=== PATIENT | male | born 1955 ===

== ENCOUNTER 2017-07-14 11:35 | Inpatient (IN) | payer MEDICAID ==
[2017-07-14] MEDS ORDERED: Sodium Chloride 0.9% 1,000 ML IV ONE (13:00)
[2017-07-14] MEDS ORDERED: Sodium Chloride 0.9% 1,000 ML ONE (13:09)
--- NOTE | 2017-07-14 13:21 | RAD ---
HISTORY: pain COMPARISON: No prior. TECHNIQUE: Chest PA and lateral FINDINGS: LUNGS: No infiltrate. Small calcified granulomas in both upper lobes. Largest 7 mm in the right upper lobe. . PLEURA: No significant pleural effusion identified. No pneumothorax apparent. CARDIOVASCULAR: Normal. OSSEOUS STRUCTURES: No significant abnormalities. VISUALIZED UPPER ABDOMEN: Normal. OTHER FINDINGS: None. IMPRESSION: Old granulomatous disease. No acute infiltrate.
[2017-07-14] MEDS ORDERED: Iohexol 240 (50 ml) ONE (13:35)
[2017-07-14 13:38] LABS: BASO # 0.1 K/uL (0.0-0.2); BASO % 0.9 % (0.0-2.0); EOS # 0.1 K/uL (0.0-0.7); EOS % 0.6 % (0.0-4.0); HEMOGLOBIN 11.4 g/dL (12.0-18.0); LYMPH # 0.8 K/uL (1.0-4.3); LYMPH % 8.5 % (20.0-40.0); MEAN CELL VOLUME 83.7 fL (80.0-94.0); MEAN CORPUSCULAR HEMOGLOBIN 27.9 pg (27.0-31.0); MEAN CORPUSCULAR HGB CONC 33.3 g/dL (33.0-37.0); MEAN PLATELET VOLUME 8.1 fL (7.2-11.7); MONO # 0.9 K/uL (0.0-0.8); MONO % 9.3 % (0.0-10.0); NEUT # 7.7 K/uL (1.8-7.0); NEUT % 80.7 % (50.0-75.0); PLATELET COUNT 403 K/uL (130-400); WHITE BLOOD COUNT 9.5 K/uL (4.8-10.8)
[2017-07-14 13:46] LABS: SQUAMOUS EPITHIAL < 1 /hpf (0-5); URINE BILIRUBIN NEGATIVE (NEGATIVE); URINE BLOOD NEGATIVE (NEGATIVE); URINE CLARITY Clear (Clear); URINE COLOR Yellow (YELLOW); URINE GLUCOSE (UA) NORMAL (Normal); URINE LEUKOCYTE ESTERASE NEG Leu/uL (Negative); URINE PROTEIN NEGATIVE (NEGATIVE)
[2017-07-14 13:47] LABS: INR 1.4
[2017-07-14 13:49] LABS: PROTHROMBIN TIME 16.5 SECONDS (9.7-12.2)
[2017-07-14 13:50] LABS: ALB/GLOB RATIO 0.9 (1.0-2.1); ALBUMIN 3.7 g/dL (3.5-5.0); ALT/SGPT 27 U/L (21-72); AST/SGOT 33 U/L (17-59); BLOOD UREA NITROGEN 15 mg/dL (9-20); CALCIUM 9.2 mg/dl (8.6-10.4); GFR AFRICAN-AMERICAN > 60; GFR NON-AFRICAN AMERICAN > 60; LIPASE 138 U/L (23-300)
[2017-07-14 14:21] LABS: ANISOCYTOSIS SLIGHT; LYMPHOCYTE 9 % (20-40); MONOCYTE 7 % (0-10); NEUTROPHIL 84 % (50-75); PLATELET ESTIMATE SLIGHTLY INCREASED (NORMAL); TOTAL CELLS COUNTED 100
--- NOTE | 2017-07-14 14:31 | C.PDOC ---
History Of Present Illness 62 yo male w/o significant PMHx come in for evaluation of "epigastric mass started to hurt for past week". Pt describes pain as localized over epigsatric area, constant but worse at night time, worse with food intake. As per family, "for past few days was unable to swallow because of pain in epigastric area". Pt admits, "noted it some time ago but it did not bother before". Pt also reports, (+) nausea, decrease in appetite, malaise. Otherwise, denies fever, chills, CP, SOB, dyspnea, diaphoresis, palpitation, vomiting, diarrhea, back pain, UTI sx. At the time of evaluation, appear comfortable, not in nay apparent distress. Time Seen by Provider: 07/14/17 12:34 Chief Complaint (Nursing): Abdominal Pain History Per: Patient, Family Onset/Duration Of Symptoms: Gradual, Worse Since Past Medical History Reviewed: Historical Data, Nursing Documentation, Vital Signs Vital Signs: Last Vital Signs Temp 98.4 F 07/14/17 17:01 Pulse 70 07/14/17 17:01 Resp 17 07/14/17 17:01 BP 132/72 07/14/17 17:01 Pulse Ox 99 07/14/17 17:43 - Medical History PMH: No Chronic Diseases Surgical History: Cholecystectomy Family History: States: No Known Family Hx - Social History Hx Tobacco Use: No Hx Alcohol Use: No Hx Substance Use: No - Immunization History Hx Tetanus Toxoid Vaccination: No Hx Influenza Vaccination: No Hx Pneumococcal Vaccination: No Review Of Systems Except As Marked, All Systems Reviewed And Found Negative. Constitutional: Positive for: Malaise. Negative for: Fever, Chills ENT: Negative for: Ear Discharge, Nose Discharge, Throat Pain, Throat Swelling Cardiovascular: Negative for: Chest Pain Respiratory: Negative for: Cough, Shortness of Breath, Wheezing Gastrointestinal: Positive for: Nausea, Abdominal Pain. Negative for: Vomiting , Diarrhea, Melena, Hematochezia, Hematemesis, Rectal Pain Genitourinary: Negative for: Incontinence Musculoskeletal: Negative for: Neck Pain, Back Pain Skin: Negative for: Jaundice Neurological: Negative for: Weakness, Numbness, Altered Mental Status, Dizziness Physical Exam - Physical Exam Appears: Well, Non-toxic, No Acute Distress, Chronically Ill Skin: Normal Color, Warm, Dry, No Rash, No Jaundice Head: Normacephalic Eye(s): bilateral: PERRL Nose: No Flaring, No Discharge Oral Mucosa: Moist Throat: No Drooling Neck: Trachea Midline, Supple Cardiovascular: Rhythm Regular, No Murmur, No JVD Respiratory: No Decreased Breath Sounds, No Accessory Muscle Use, No Stridor, No Wheezing Gastrointestinal/Abdominal: Soft, Tenderness (mod epigastric), No Organomegaly, Mass (epigastric), Distention (mild), No Guarding, No Rebound Back: No CVA Tenderness Extremity: Normal ROM, No Pedal Edema, No Deformity, No Swelling Neurological/Psych: Oriented x3, Normal Speech ED Course And Treatment - Laboratory Results Result Diagrams: 07/14/17 13:26 07/14/17 13:26 Lab Interpretation: No Acute Changes O2 Sat by Pulse Oximetry: 99 Pulse Ox Interpretation: Normal - Other Rad CXR X-Ray: Read By Radiologist Interpretation: FINDINGS: LUNGS: No infiltrate. Small calcified granulomas in both upper lobes. Largest 7 mm in the right upper lobe. . PLEURA: No significant pleural effusion identified. No pneumothorax apparent. CARDIOVASCULAR: Normal. OSSEOUS STRUCTURES: No significant abnormalities. VISUALIZED UPPER ABDOMEN: Normal. OTHER FINDINGS: None. IMPRESSION: Old granulomatous disease. No acute infiltrate. - CT Scan/US CT abd/pelvis Other Rad Studies (CT/US): Interpreted By Me, Radiology Report Reviewed CT/US Interpretation: COMPARISON: None. TECHNIQUE: Contrast dose: 100 mL Visipaque 320. Radiation dose: Total exam DLP = 914.40 mGy-cm. This CT exam was performed using one or more of the following dose reduction techniques: Automated exposure control, adjustment of the mA and/or kV according to patient size, and/or use of iterative reconstruction technique. FINDINGS: LOWER THORAX : Unremarkable. LIVER: Normal size, contour and attenuation. No mass. No biliary dilatation. GALLBLADDER AND BILE DUCTS: Status post cholecystectomy. PANCREAS: Unremarkable. No gross lesion or ductal dilatation. SPLEEN: Unremarkable. ADRENALS: Unremarkable. No mass. KIDNEYS AND URETERS: No mass or hydronephrosis. Several 2 mm nonobstructing calculi are noted in the right lower pole collecting system. No left renal calculus. VASCULATURE: Unremarkable. No aortic aneurysm. BOWEL: Sigmoid diverticulosis. No evidence of diverticulitis. No bowel obstruction. APPENDIX: Normal appendix. PERITONEUM: Minimal ascites in pelvis and about the liver. LYMPH NODES: Massive retroperitoneal lymphadenopathy with extensive mesenteric lymphadenopathy and pelvic lymphadenopathy noted as well. The mass of retroperitoneal lymphoid tissue splays and encases the renal arteries and displaces the celiac and SMA. There is heterogeneous low-attenuation within much of the lymphoid tissue suggestive of central necrosis. BLADDER: Nondistended. REPRODUCTIVE: Unremarkable prostate. BONES: No acute fracture. OTHER FINDINGS: None. IMPRESSION: Massive retroperitoneal lymphadenopathy with pelvic and mesenteric lymphadenopathy, suspicious for a lymphoma. Minimal ascites. No other significant abnormality. . Progress Note: On re-evaluation, pt is afebrile, hemodynamicaly stable. NOn- toxic but ill appearing. Blood work review. CT imaging review c/w new onset of lymphoma. Case discussed with ED attending and admission recommend. case discussed with and admisison arranged, hem-onc consult with Dr. Silva requested, dr notified. results review and discussed with pt and family , agrees with plan. Disposition - Disposition Disposition: HOSPITALIZED Disposition Time: 16:57 Condition: FAIR - Clinical Impression Clinical Impression: Lymphoma, Abdominal pain, Decrease in appetite
[2017-07-14] MEDS ORDERED: Iodixanol 320 MG/ML 100 ML BOTTLE IV ONE (14:56)
--- NOTE | 2017-07-14 16:48 | CT ---
PROCEDURE: CT Abdomen and Pelvis with contrast HISTORY: epigastric abd mass COMPARISON: None. TECHNIQUE: Contrast dose: 100 mL Visipaque 320 Radiation dose: Total exam DLP = 914.40 mGy-cm. This CT exam was performed using one or more of the following dose reduction techniques: Automated exposure control, adjustment of the mA and/or kV according to patient size, and/or use of iterative reconstruction technique. FINDINGS: LOWER THORAX: Unremarkable. LIVER: Normal size, contour and attenuation. No mass. No biliary dilatation. GALLBLADDER AND BILE DUCTS: Status post cholecystectomy. PANCREAS: Unremarkable. No gross lesion or ductal dilatation. SPLEEN: Unremarkable. ADRENALS: Unremarkable. No mass. KIDNEYS AND URETERS: No mass or hydronephrosis. Several 2 mm nonobstructing calculi are noted in the right lower pole collecting system. No left renal calculus. VASCULATURE: Unremarkable. No aortic aneurysm. BOWEL: Sigmoid diverticulosis. No evidence of diverticulitis. No bowel obstruction. APPENDIX: Normal appendix. PERITONEUM: Minimal ascites in pelvis and about the liver LYMPH NODES: Massive retroperitoneal lymphadenopathy with extensive mesenteric lymphadenopathy and pelvic lymphadenopathy noted as well. The mass of retroperitoneal lymphoid tissue splays and encases the renal arteries and displaces the celiac and SMA. There is heterogeneous low-attenuation within much of the lymphoid tissue suggestive of central necrosis. BLADDER: Nondistended REPRODUCTIVE: Unremarkable prostate BONES: No acute fracture. OTHER FINDINGS: None. IMPRESSION: Massive retroperitoneal lymphadenopathy with pelvic and mesenteric lymphadenopathy, suspicious for a lymphoma. Minimal ascites. No other significant abnormality.
[2017-07-14 20:09] VITALS: RESP 20
[2017-07-14] MEDS: Sodium Chloride 0.9% 1,000 ML IV SCH (20:29)
[2017-07-14] MEDS: HYDROmorphone 0.5 mg/0.5 ml ISec IVP PRN (22:10)
[2017-07-15] MEDS: HYDROmorphone 0.5 mg/0.5 ml ISec IVP PRN (04:22)
[2017-07-15 06:49] LABS: HEMOGLOBIN 10.6 g/dL (12.0-18.0); MEAN CORPUSCULAR HEMOGLOBIN 28.9 pg (27.0-31.0); MEAN CORPUSCULAR HGB CONC 34.4 g/dL (33.0-37.0); MEAN PLATELET VOLUME 7.8 fL (7.2-11.7); RBC 3.67 Mil/uL (4.40-5.90); RED CELL DISTRIBUTION WIDTH 15.1 % (11.5-14.5); WHITE BLOOD COUNT 8.5 K/uL (4.8-10.8)
[2017-07-15] MEDS: Sodium Chloride 0.9% 1,000 ML IV SCH ×2 (06:59→16:45)
[2017-07-15 07:01] LABS: IRON 10 ug/dL (49-181)
[2017-07-15 07:13] LABS: ALB/GLOB RATIO 0.9 (1.0-2.1); ALT/SGPT 23 U/L (21-72); AST/SGOT 28 U/L (17-59); BLOOD UREA NITROGEN 9 mg/dL (9-20); CALCIUM 8.3 mg/dl (8.6-10.4); GFR AFRICAN-AMERICAN > 60; GFR NON-AFRICAN AMERICAN > 60
[2017-07-15 07:17] LABS: % IRON SATURATION 5 (20-55); TOTAL IRON BINDING CAPACITY 226 ug/dL (250-450)
--- NOTE | 2017-07-15 10:13 | CP.PCM.CON ---
<Kate Garcia - Last Filed: 07/15/17 10:15> History of Present Illness - History of Present Illness History of Present Illness: PGY4 GI Initial Consult Gonsalo Kenney is a 62 M w/ no sig medical hx who presented the ER with complaints if abd pain. Pt states that the pain started 1-2m ago and has progressively worsened. Pt states that the pain was a 9 out of 10. His pain radiates to his back. He denies any trouble swallowing. He notes association with food. He notes a 20lb weight loss in 2-3 months. he denies and rectal bleeding, melena, hematemesis, or coffee-ground emesis. He denies any previous colonoscopy and endoescopy. . Pt also reports, (+) nausea, decrease in appetite , malaise. Otherwise, denies fever, chills, CP, SOB, dyspnea, diaphoresis, palpitation, vomiting, diarrhea, back pain. A CT of the abd/chest revealed diffusely enlarged lymph nodes in the abd. PMHx None PSHx: None Social hx, denies any smoking, ETOH use and illicit drug use Fmaily hx : denies Endo hx: denies ROS: 12 point ROS conducted, neg other than above Past Patient History - Past Medical History & Family History Past Medical History?: Yes - Past Social History Smoking Status: Never Smoked - CARDIAC Hx Cardiac Disorders: No - PULMONARY Hx Respiratory Disorders: No - NEUROLOGICAL Hx Neurological Disorder: No - HEENT Hx HEENT Problems: No - RENAL Hx Chronic Kidney Disease: No - ENDOCRINE/METABOLIC Hx Endocrine Disorders: No - HEMATOLOGICAL/ONCOLOGICAL Hx Blood Disorders: No - INTEGUMENTARY Hx Dermatological Problems: No - MUSCULOSKELETAL/RHEUMATOLOGICAL Hx Musculoskeletal Disorders: No Hx Falls: No - GASTROINTESTINAL Hx Gastrointestinal Disorders: No Hx Gall Bladder Disease: Yes - GENITOURINARY/GYNECOLOGICAL Hx Genitourinary Disorders: No Hx Sexually Transmitted Disorders: Yes (Gonorrhea 40 yrs ago) - PSYCHIATRIC Hx Psychophysiologic Disorder: No Hx Substance Use: No - SURGICAL HISTORY Hx Cholecystectomy: Yes (2015) - ANESTHESIA Hx Anesthesia: Yes Hx Anesthesia Reactions: No Meds Allergies/Adverse Reactions: Allergies Allergy/AdvReac Type Severity Reaction Status Date / Time No Known Allergies Allergy Unverified 07/14/17 11:48 - Medications Medications: Current Medications Enoxaparin Sodium (Lovenox) 40 mg SC DAILY [facility] Famotidine (Pepcid) 40 mg IVP DAILY [facility] Hydromorphone HCl (Dilaudid) 0.5 mg IVP Q6H PRN PRN Reason: Pain, moderate (4-7) Last Admin: 07/15/17 04:22 Dose: 0.5 mg Sodium Chloride (Sodium Chloride 0.9%) 1,000 mls @ 100 mls/hr IV .Q10H [facility] Last Admin: 07/15/17 06:59 Dose: 100 mls/hr Ondansetron HCl (Zofran Inj) 4 mg IVP Q6H PRN PRN Reason: Nausea/Vomiting Pneumococcal Polyvalent Vaccine (Pneumovax 23 Vaccine) 0.5 ml IM .ONCE ONE Stop: 07/17/17 10:01 Physical Exam - Constitutional Appears: Well, No Acute Distress - Head Exam Head Exam: ATRAUMATIC, NORMOCEPHALIC - Eye Exam Eye Exam: Normal appearance - ENT Exam ENT Exam: Mucous Membranes Moist, Normal Exam - Neck Exam Neck exam: Positive for: Normal Inspection - Respiratory Exam Respiratory Exam: Clear to Auscultation Bilateral, NORMAL BREATHING PATTERN. absent: Rales, Rhonchi, Wheezes, Respiratory Distress - Cardiovascular Exam Cardiovascular Exam: +S1, +S2 - GI/Abdominal Exam GI & Abdominal Exam: Firm, Normal Bowel Sounds, Soft. absent: Distended, Guarding, Hernia - Extremities Exam Extremities exam: Negative for: joint swelling - Neurological Exam Neurological exam: Alert, Oriented x3 - Psychiatric Exam Psychiatric exam: Normal Affect, Normal Mood - Skin Skin Exam: Dry, Intact, Normal Color, Warm Results - Vital Signs Recent Vital Signs: Last Vital Signs Temp 98.2 F 07/15/17 07:37 Pulse 72 07/15/17 07:37 Resp 20 07/15/17 07:37 BP 128/76 07/15/17 07:37 Pulse Ox 98 07/15/17 07:37 - Labs Result Diagrams: 07/15/17 06:37 07/15/17 06:37 Labs: Laboratory Results - last 24 hr 07/14/17 07/14/17 07/14/17 13:26 13:26 13:26 WBC 9.5 RBC 4.10 L Hgb 11.4 L Hct 34.3 L MCV 83.7 MCH 27.9 MCHC 33.3 RDW 15.0 H Plt Count 403 H MPV 8.1 Neut % (Auto) 80.7 H Lymph % (Auto) 8.5 L Page % (Auto) 9.3 Eos % (Auto) 0.6 Baso % (Auto) 0.9 Neut # (Auto) 7.7 H Lymph # (Auto) 0.8 L Page # (Auto) 0.9 H Eos # (Auto) 0.1 Baso # (Auto) 0.1 Neutrophils % (Manual) 84 H Lymphocytes % (Manual) 9 L Monocytes % (Manual) 7 Platelet Estimate Slightly increased H Anisocytosis (manual) Slight PT 16.5 H INR 1.4 APTT 28 Sodium 136 Potassium 4.4 Chloride 95 L Carbon Dioxide 28 Anion Gap 17 BUN 15 Creatinine 0.7 L Est GFR ( Amer) > 60 Est GFR (Non-Af Amer) > 60 Random Glucose 85 Hemoglobin A1c Calcium 9.2 Iron TIBC % Saturation Total Bilirubin 0.8 AST 33 ALT 27 Alkaline Phosphatase 101 Total Protein 7.7 Albumin 3.7 Globulin 4.0 H Albumin/Globulin Ratio 0.9 L Triglycerides Cholesterol LDL Cholesterol Direct HDL Cholesterol Lipase 138 Vitamin B12 Folate TSH 3rd Generation Urine Color Urine Clarity Urine pH Ur Specific Stendal Urine Protein Urine Glucose (UA) Urine Ketones Urine Blood Urine Nitrate Urine Bilirubin Urine Urobilinogen Ur Leukocyte Esterase Urine WBC (Auto) Urine RBC (Auto) Ur Squamous Epith Cells 07/14/17 07/15/17 07/15/17 13:26 06:37 06:37 WBC RBC Hgb Hct MCV MCH MCHC RDW Plt Count MPV Neut % (Auto) Lymph % (Auto) Page % (Auto) Eos % (Auto) Baso % (Auto) Neut # (Auto) Lymph # (Auto) Page # (Auto) Eos # (Auto) Baso # (Auto) Neutrophils % (Manual) Lymphocytes % (Manual) Monocytes % (Manual) Platelet Estimate Anisocytosis (manual) PT INR APTT Sodium Potassium Chloride Carbon Dioxide Anion Gap BUN Creatinine Est GFR ( Amer) Est GFR (Non-Af Amer) Random Glucose Hemoglobin A1c Calcium Iron 10 L TIBC 226 L % Saturation 5 L Total Bilirubin AST ALT Alkaline Phosphatase Total Protein Albumin Globulin Albumin/Globulin Ratio Triglycerides 86 Cholesterol 140 LDL Cholesterol Direct 99 HDL Cholesterol 22 L Lipase Vitamin B12 496 Folate 5.0 TSH 3rd Generation Urine Color Yellow Urine Clarity Clear Urine pH 6.0 Ur Specific Stendal 1.021 Urine Protein Negative Urine Glucose (UA) Normal Urine Ketones Negative Urine Blood Negative Urine Nitrate Negative Urine Bilirubin Negative Urine Urobilinogen 4.0 Ur Leukocyte Esterase Neg Urine WBC (Auto) < 1 Urine RBC (Auto) 1 Ur Squamous Epith Cells < 1 07/15/17 07/15/17 07/15/17 06:37 06:37 06:37 WBC 8.5 RBC 3.67 L Hgb 10.6 L Hct 30.8 L MCV 84.0 MCH 28.9 MCHC 34.4 RDW 15.1 H Plt Count 349 MPV 7.8 Neut % (Auto) Lymph % (Auto) Page % (Auto) Eos % (Auto) Baso % (Auto) Neut # (Auto) Lymph # (Auto) Page # (Auto) Eos # (Auto) Baso # (Auto) Neutrophils % (Manual) Lymphocytes % (Manual) Monocytes % (Manual) Platelet Estimate Anisocytosis (manual) PT INR APTT Sodium 136 Potassium 3.9 Chloride 98 Carbon Dioxide 26 Anion Gap 15 BUN 9 Creatinine 0.6 L Est GFR ( Amer) > 60 Est GFR (Non-Af Amer) > 60 Random Glucose 91 Hemoglobin A1c 6.0 Calcium 8.3 L Iron TIBC % Saturation Total Bilirubin 0.6 AST 28 ALT 23 Alkaline Phosphatase 85 Total Protein 6.4 Albumin 3.0 L Globulin 3.4 Albumin/Globulin Ratio 0.9 L Triglycerides Cholesterol LDL Cholesterol Direct HDL Cholesterol Lipase Vitamin B12 Folate TSH 3rd Generation 4.43 Urine Color Urine Clarity Urine pH Ur Specific Stendal Urine Protein Urine Glucose (UA) Urine Ketones Urine Blood Urine Nitrate Urine Bilirubin Urine Urobilinogen Ur Leukocyte Esterase Urine WBC (Auto) Urine RBC (Auto) Ur Squamous Epith Cells Assessment & Plan - Assessment and Plan (Free Text) Assessment: Gonsalo Kenney is a 62M w/ no sig abd pain who presents to the ER w/ complaints of abd pain. CT revealed enlarged lymph nodes disfusely in the abdomen Massively enlarged Lymph Nodes; DDx: lymphoma Epigastric pain, likely 2/2 above; DDx: PUD, malignancy Weight loss Plan: - would benefit from EUS guided biospy of nodes -continue PPI -recommend Hem/onc consultation -continue diet as tolerated -will eventually need a colonoscopy as an oupt to complete work-up -will need PET ad outpt to complete staging w/u -will follow, thank you for the consultation D/W Dr. herrera <Chan Herrera - Last Filed: 07/15/17 11:20> Meds - Medications Medications: Current Medications Enoxaparin Sodium (Lovenox) 40 mg SC DAILY [facility] Last Admin: 07/15/17 10:22 Dose: 40 mg Famotidine (Pepcid) 40 mg IVP DAILY [facility] Last Admin: 07/15/17 10:22 Dose: 40 mg Hydromorphone HCl (Dilaudid) 0.5 mg IVP Q6H PRN PRN Reason: Pain, moderate (4-7) Last Admin: 07/15/17 04:22 Dose: 0.5 mg Sodium Chloride (Sodium Chloride 0.9%) 1,000 mls @ 100 mls/hr IV .Q10H [facility] Last Admin: 07/15/17 06:59 Dose: 100 mls/hr Ondansetron HCl (Zofran Inj) 4 mg IVP Q6H PRN PRN Reason: Nausea/Vomiting Pneumococcal Polyvalent Vaccine (Pneumovax 23 Vaccine) 0.5 ml IM .ONCE ONE Stop: 07/17/17 10:01 Results - Vital Signs Recent Vital Signs: Last Vital Signs Temp 98.2 F 07/15/17 07:37 Pulse 72 07/15/17 07:37 Resp 20 07/15/17 07:37 BP 128/76 07/15/17 07:37 Pulse Ox 98 07/15/17 07:37 - Labs Result Diagrams: 07/15/17 06:37 07/15/17 06:37 Labs: Laboratory Results - last 24 hr 07/14/17 07/14/17 07/14/17 13:26 13:26 13:26 WBC 9.5 RBC 4.10 L Hgb 11.4 L Hct 34.3 L MCV 83.7 MCH 27.9 MCHC 33.3 RDW 15.0 H Plt Count 403 H MPV 8.1 Neut % (Auto) 80.7 H Lymph % (Auto) 8.5 L Page % (Auto) 9.3 Eos % (Auto) 0.6 Baso % (Auto) 0.9 Neut # (Auto) 7.7 H Lymph # (Auto) 0.8 L Page # (Auto) 0.9 H Eos # (Auto) 0.1 Baso # (Auto) 0.1 Neutrophils % (Manual) 84 H Lymphocytes % (Manual) 9 L Monocytes % (Manual) 7 Platelet Estimate Slightly increased H Anisocytosis (manual) Slight PT 16.5 H INR 1.4 APTT 28 Sodium 136 Potassium 4.4 Chloride 95 L Carbon Dioxide 28 Anion Gap 17 BUN 15 Creatinine 0.7 L Est GFR ( Amer) > 60 Est GFR (Non-Af Amer) > 60 Random Glucose 85 Hemoglobin A1c Calcium 9.2 Iron TIBC % Saturation Total Bilirubin 0.8 AST 33 ALT 27 Alkaline Phosphatase 101 Total Protein 7.7 Albumin 3.7 Globulin 4.0 H Albumin/Globulin Ratio 0.9 L Triglycerides Cholesterol LDL Cholesterol Direct HDL Cholesterol Lipase 138 Vitamin B12 Folate TSH 3rd Generation Urine Color Urine Clarity Urine pH Ur Specific Stendal Urine Protein Urine Glucose (UA) Urine Ketones Urine Blood Urine Nitrate Urine Bilirubin Urine Urobilinogen Ur Leukocyte Esterase Urine WBC (Auto) Urine RBC (Auto) Ur Squamous Epith Cells 07/14/17 07/15/17 07/15/17 13:26 06:37 06:37 WBC RBC Hgb Hct MCV MCH MCHC RDW Plt Count MPV Neut % (Auto) Lymph % (Auto) Page % (Auto) Eos % (Auto) Baso % (Auto) Neut # (Auto) Lymph # (Auto) Page # (Auto) Eos # (Auto) Baso # (Auto) Neutrophils % (Manual) Lymphocytes % (Manual) Monocytes % (Manual) Platelet Estimate Anisocytosis (manual) PT INR APTT Sodium Potassium Chloride Carbon Dioxide Anion Gap BUN Creatinine Est GFR ( Amer) Est GFR (Non-Af Amer) Random Glucose Hemoglobin A1c Calcium Iron 10 L TIBC 226 L % Saturation 5 L Total Bilirubin AST ALT Alkaline Phosphatase Total Protein Albumin Globulin Albumin/Globulin Ratio Triglycerides 86 Cholesterol 140 LDL Cholesterol Direct 99 HDL Cholesterol 22 L Lipase Vitamin B12 496 Folate 5.0 TSH 3rd Generation Urine Color Yellow Urine Clarity Clear Urine pH 6.0 Ur Specific Stendal 1.021 Urine Protein Negative Urine Glucose (UA) Normal Urine Ketones Negative Urine Blood Negative Urine Nitrate Negative Urine Bilirubin Negative Urine Urobilinogen 4.0 Ur Leukocyte Esterase Neg Urine WBC (Auto) < 1 Urine RBC (Auto) 1 Ur Squamous Epith Cells < 1 07/15/17 07/15/17 07/15/17 06:37 06:37 06:37 WBC 8.5 RBC 3.67 L Hgb 10.6 L Hct 30.8 L MCV 84.0 MCH 28.9 MCHC 34.4 RDW 15.1 H Plt Count 349 MPV 7.8 Neut % (Auto) Lymph % (Auto) Page % (Auto) Eos % (Auto) Baso % (Auto) Neut # (Auto) Lymph # (Auto) Page # (Auto) Eos # (Auto) Baso # (Auto) Neutrophils % (Manual) Lymphocytes % (Manual) Monocytes % (Manual) Platelet Estimate Anisocytosis (manual) PT INR APTT Sodium 136 Potassium 3.9 Chloride 98 Carbon Dioxide 26 Anion Gap 15 BUN 9 Creatinine 0.6 L Est GFR ( Amer) > 60 Est GFR (Non-Af Amer) > 60 Random Glucose 91 Hemoglobin A1c 6.0 Calcium 8.3 L Iron TIBC % Saturation Total Bilirubin 0.6 AST 28 ALT 23 Alkaline Phosphatase 85 Total Protein 6.4 Albumin 3.0 L Globulin 3.4 Albumin/Globulin Ratio 0.9 L Triglycerides Cholesterol LDL Cholesterol Direct HDL Cholesterol Lipase Vitamin B12 Folate TSH 3rd Generation 4.43 Urine Color Urine Clarity Urine pH Ur Specific Stendal Urine Protein Urine Glucose (UA) Urine Ketones Urine Blood Urine Nitrate Urine Bilirubin Urine Urobilinogen Ur Leukocyte Esterase Urine WBC (Auto) Urine RBC (Auto) Ur Squamous Epith Cells Attending/Attestation - Attestation I have personally seen and examined this patient.: Yes I have fully participated in the care of the patient.: Yes I have reviewed all pertinent clinical information: Yes Notes (Text): 07/15/17 11:19 62 year old male who presents with new onset abdominal pain and weight loss, found to have bulky retroperitoneal lymphadenopathy. Plan for EUS with [facility] monday. Recommend Heme consult.
[2017-07-15] MEDS: Enoxaparin 40 mg Syringe SC SCH (10:22)
--- NOTE | 2017-07-15 11:25 | HP ---
CHIEF COMPLAINT: Feeling fatigue, tired, and abdominal pain. HISTORY OF PRESENT ILLNESS: Mr. Anne Marie Brush is a 62-year-old male, without significant past medical history, came for evaluation of epigastric mass that started to hurt for the past week. The patient described pain as localized over the epigastric area. at night time versus food intake. As per family for the past few days, the patient was unable to swallow because of pain in the epigastrium area. The patient noted it some time ago, but it did not bother before, it comes and goes. The patient reports also positive nausea, decrease in appetite, malaise. No fever or chills. No shortness of breath. No dyspnea, no diaphoresis, no palpitation, hematuria, or hematochezia. PAST MEDICAL HISTORY: Denied. PAST SURGICAL HISTORY: Cholecystectomy. FAMILY HISTORY: Father and mother, noncontributory. HABITS: Never smoked. No drugs. No ethanol. HOME MEDICATIONS: Denied. REVIEW OF SYSTEMS: The patient seen and examined at the bedside. Looking comfortable. No nausea, vomiting, diarrhea. No hematuria or hematochezia. No headache. No dizziness. Was complaining about abdominal pain. Poor appetite. Feeling fatigue and tired, some time nauseous. PHYSICAL EXAMINATION: VITAL SIGNS: Temperature 98.4, pulse 100, respiratory rate 17, blood pressure 132/72, pulse oximetry 99. HEENT: Head: Normocephalic, atraumatic. Eyes: PERRLA. Extraocular muscles intact. Conjunctivae clear. Nose patent. Mucous membrane moist. NECK: Supple. No carotid bruits, JVD, or thyromegaly. CHEST: Bilaterally symmetrical. HEART: S1 and S2 positive. LUNGS: Clear to auscultation. ABDOMEN: Soft. Bowel sounds positive. No organomegaly. EXTREMITIES: No edema, no cyanosis. NEUROLOGICAL: The patient is awake and alert, moving all four extremities. No focal deficits. LABORATORY DATA: White blood cells 9.5, hemoglobin 11.4, hematocrit 34.3, and platelets of 403. Sodium 136, potassium 4.4, BUN 15, creatinine 0.7, glucose 85. ASSESSMENT AND PLAN: Mr. Gonsalo Castillo is a 62-year-old male, with anemia, hyperglycemia, hypochloremia, came with abdominal pain. The patient looks ill appearing. CT images reviewed showed like new onset lymphoma. Discussion with ER physician. Hematology consult with Dr. Epstein and GI with Dr. Moise Nolasco. The patient had anorexia, nausea, abdominal pain, rule out lymphoma. We will start him on pain medications, hydromorphone, Pepcid, NS, Zofran . I will put the patient on Lovenox for DVT prophylaxis. We will repeat labs. We will follow up. Kenzie Zepeda MD [email or web address]
[2017-07-15] MEDS ORDERED: HYDROmorphone 1 mg/ml ISec IVP PRN (20:22)
--- NOTE | 2017-07-15 20:43 | CP.PCM.CON ---
History of Present Illness - History of Present Illness History of Present Illness: 62 yo man presenting with increasing abdominal pain, without nausea, vomiting, diarrhea, decreased appetite and weight loss of 20 lbs, no fevers, night sweats , for a little over a week, found to have bulky retroperitoneal lymphadenopathy , scheduled for EUS biopsy. The patient does not have any axillary or neck L.N, except for a rt. neck L.N. The patient is also c/o sore throat also since a week or so. Past Patient History - Past Medical History & Family History Past Medical History?: Yes - Past Social History Smoking Status: Never Smoked - CARDIAC Hx Cardiac Disorders: No - PULMONARY Hx Respiratory Disorders: No - NEUROLOGICAL Hx Neurological Disorder: No - HEENT Hx HEENT Problems: No - RENAL Hx Chronic Kidney Disease: No - ENDOCRINE/METABOLIC Hx Endocrine Disorders: No - HEMATOLOGICAL/ONCOLOGICAL Hx Blood Disorders: No - INTEGUMENTARY Hx Dermatological Problems: No - MUSCULOSKELETAL/RHEUMATOLOGICAL Hx Musculoskeletal Disorders: No Hx Falls: No - GASTROINTESTINAL Hx Gastrointestinal Disorders: No Hx Gall Bladder Disease: Yes - GENITOURINARY/GYNECOLOGICAL Hx Genitourinary Disorders: No Hx Sexually Transmitted Disorders: Yes (Gonorrhea 40 yrs ago) - PSYCHIATRIC Hx Psychophysiologic Disorder: No Hx Substance Use: No - SURGICAL HISTORY Hx Cholecystectomy: Yes (2015) - ANESTHESIA Hx Anesthesia: Yes Hx Anesthesia Reactions: No Meds Allergies/Adverse Reactions: Allergies Allergy/AdvReac Type Severity Reaction Status Date / Time No Known Allergies Allergy Unverified 07/14/17 11:48 - Medications Medications: Current Medications Enoxaparin Sodium (Lovenox) 40 mg SC DAILY [facility] Last Admin: 07/15/17 10:22 Dose: 40 mg Famotidine (Pepcid) 40 mg IVP DAILY [facility] Last Admin: 07/15/17 10:22 Dose: 40 mg Hydromorphone HCl (Dilaudid) 1 mg IVP Q4H PRN PRN Reason: Pain, Mild (1-3) Sodium Chloride (Sodium Chloride 0.9%) 1,000 mls @ 100 mls/hr IV .Q10H [facility] Last Admin: 07/15/17 16:45 Dose: Not Given Ondansetron HCl (Zofran Inj) 4 mg IVP Q6H PRN PRN Reason: Nausea/Vomiting Pneumococcal Polyvalent Vaccine (Pneumovax 23 Vaccine) 0.5 ml IM .ONCE ONE Stop: 07/17/17 10:01 Results - Vital Signs Recent Vital Signs: Last Vital Signs Temp 98.5 F 07/15/17 17:11 Pulse 76 07/15/17 17:11 Resp 20 07/15/17 17:11 BP 130/74 07/15/17 17:11 Pulse Ox 95 07/15/17 17:11 - Labs Result Diagrams: 07/15/17 06:37 07/15/17 06:37 Labs: Laboratory Results - last 24 hr 07/15/17 07/15/17 07/15/17 06:37 06:37 06:37 WBC RBC Hgb Hct MCV MCH MCHC RDW Plt Count MPV Sodium Potassium Chloride Carbon Dioxide Anion Gap BUN Creatinine Est GFR ( Amer) Est GFR (Non-Af Amer) Random Glucose Hemoglobin A1c 6.0 Calcium Iron 10 L TIBC 226 L % Saturation 5 L Total Bilirubin AST ALT Alkaline Phosphatase Total Protein Albumin Globulin Albumin/Globulin Ratio Triglycerides 86 Cholesterol 140 LDL Cholesterol Direct 99 HDL Cholesterol 22 L Vitamin B12 496 Folate 5.0 TSH 3rd Generation 07/15/17 07/15/17 06:37 06:37 WBC 8.5 RBC 3.67 L Hgb 10.6 L Hct 30.8 L MCV 84.0 MCH 28.9 MCHC 34.4 RDW 15.1 H Plt Count 349 MPV 7.8 Sodium 136 Potassium 3.9 Chloride 98 Carbon Dioxide 26 Anion Gap 15 BUN 9 Creatinine 0.6 L Est GFR ( Amer) > 60 Est GFR (Non-Af Amer) > 60 Random Glucose 91 Hemoglobin A1c Calcium 8.3 L Iron TIBC % Saturation Total Bilirubin 0.6 AST 28 ALT 23 Alkaline Phosphatase 85 Total Protein 6.4 Albumin 3.0 L Globulin 3.4 Albumin/Globulin Ratio 0.9 L Triglycerides Cholesterol LDL Cholesterol Direct HDL Cholesterol Vitamin B12 Folate TSH 3rd Generation 4.43 Assessment & Plan (1) Lymphadenopathy Assessment and Plan: 62 yo man with bulky retroperitoneal lymphadenopathy presenting with abdominal pain, weight loss, also with rt. neck L.N and rt. tonsil mass, ?? all secondary to lymphoid malignancy. Will need core biopsy of L.N to establish diagnosis, will get ENT eval for ? fna of rt. neck LN , to r/o tonsillar abscess/? malignancy. Will get CAT scan of neck and chest as [place] . Above discussed with patient. Will get labs-LDH, Hepatitis profiles, EBV, ESR Status: Acute
--- NOTE | 2017-07-16 00:05 | PN ---
DATE: SUBJECTIVE: The patient is seen and examined at the bedside, looking comfortable. No nausea, vomiting, diarrhea. Having abdominal pain. No headache. No dizziness. No fever. No chills. No hematuria. No dysuria. PHYSICAL EXAMINATION: VITAL SIGNS: Temperature 98.5, pulse 73, blood pressure 130/74, respiratory rate 20. HEENT: Head is normocephalic and atraumatic. Eyes: PERRLA. Extraocular muscles intact. Conjunctivae clear. Nose patent. Mucous membranes moist. NECK: Supple. No carotid bruit. No JVD or thyromegaly. CHEST: Bilaterally symmetrical. HEART: S1 and S2 positive LUNGS: Clear to auscultation. ABDOMEN: Soft. Bowel sounds are present. No organomegaly. EXTREMITIES: No edema. No cyanosis. NEUROLOGIC: Patient is awake and alert. Moving all four extremities. No focal deficit. MEDICATIONS: Dilaudid, Lovenox, Pepcid, Pneumococcal ,Zofran. LABORATORY DATA: White blood cells 8.5, hemoglobin 10.6, hematocrit 30.8, platelets 349. Sodium 136, potassium 3.9, BUN 9, creatinine 0.6, hemoglobin A1c is 6, calcium 8.3. ASSESSMENT AND PLAN: Mr. Clover Brush is 62 years old male with anemia, hyperchloremia, iron deficiency, seen by Dr. Chan Herrera, agricultural service worker, came to the emergency room with abdominal pain. CT revealed enlarged lymph nodes, diffusely in the abdomen. Massively large lymph nodes, may rule out lymphoma. Epigastric pain, likely may be peptic ulcer diffuse malignancy of weight lost. Would benefit from an EUS-guided biopsy of the nodes. Continue PPI. Recommend Hematology/Oncology consult. They are already on the case, waiting for the input. Continue diet as tolerated. The patient needs colonoscopy as outpatient to complete the workup. We will need PET scan as outpatient. May be patient will go for EUS with [facility] on Monday as per Dr. Herrera, waiting for oncologist's input. Gastrointestinal and deep venous thrombosis prophylaxis. Repeat labs. We will follow up. Kenzie Zepeda MD [facility]
[2017-07-16] MEDS: Sodium Chloride 0.9% 1,000 ML IV SCH ×5 (02:00→22:48)
[2017-07-16] MEDS ORDERED: Iodixanol 320 mg/ml 150 ml Bottle IV ONE (08:02)
[2017-07-16] MEDS: Enoxaparin 40 mg Syringe SC SCH (10:09)
--- NOTE | 2017-07-16 12:01 | CP.PCM.PN ---
<Kate Garcia - Last Filed: 07/16/17 12:02> Subjective - Date & Time of Evaluation Date of Evaluation: 07/16/17 Time of Evaluation: 08:00 - Subjective Subjective: PGY4 GI follow-up Pt seen and examined bedside Denies any abd pain hungry +BM ROS:12 point ROS conducted, neg other than above Objective - Vital Signs/Intake and Output Vital Signs (last 24 hours): Temp Pulse Resp BP Pulse Ox 98.1 F 65 20 121/71 97 07/15/17 23:42 07/15/17 23:42 07/15/17 23:42 07/15/17 23:42 07/15/17 23:42 Intake and Output: 07/16/17 07/16/17 06:59 18:59 Intake Total 2130 Balance 2130 - Medications Medications: Current Medications Enoxaparin Sodium (Lovenox) 40 mg SC DAILY [facility] Last Admin: 07/16/17 10:09 Dose: 40 mg Famotidine (Pepcid) 40 mg IVP DAILY [facility] Last Admin: 07/16/17 10:09 Dose: 40 mg Hydromorphone HCl (Dilaudid) 1 mg IVP Q4H PRN PRN Reason: Pain, Mild (1-3) Sodium Chloride (Sodium Chloride 0.9%) 1,000 mls @ 100 mls/hr IV .Q10H [facility] Last Admin: 07/16/17 11:34 Dose: Not Given Ondansetron HCl (Zofran Inj) 4 mg IVP Q6H PRN PRN Reason: Nausea/Vomiting Pneumococcal Polyvalent Vaccine (Pneumovax 23 Vaccine) 0.5 ml IM .ONCE ONE Stop: 07/17/17 10:01 - Labs Labs: 07/15/17 06:37 07/15/17 06:37 PT 16.5 SECONDS (9.7-12.2) H 07/14/17 13:26 INR 1.4 07/14/17 13:26 APTT 28 SECONDS (21-34) 07/14/17 13:26 - Constitutional Appears: Well, No Acute Distress - Head Exam Head Exam: ATRAUMATIC, NORMOCEPHALIC - Eye Exam Eye Exam: Normal appearance - Neck Exam Neck Exam: Full ROM, Normal Inspection - Respiratory Exam Respiratory Exam: Clear to Ausculation Bilateral, NORMAL BREATHING PATTERN. absent: Rales, Rhonchi, Wheezes, Respiratory Distress - Cardiovascular Exam Cardiovascular Exam: REGULAR RHYTHM, +S1, +S2 - GI/Abdominal Exam GI & Abdominal Exam: Soft, Normal Bowel Sounds. absent: Guarding, Rigid, Tenderness, Organomegaly - Extremities Exam Extremities Exam: absent: Joint Swelling, Pedal Edema - Neurological Exam Neurological Exam: Alert, Awake, Oriented x3 - Psychiatric Exam Psychiatric exam: Normal Affect, Normal Mood - Skin Skin Exam: absent: Dry, Intact, Normal Color, Warm Assessment and Plan - Assessment and Plan (Free Text) Assessment: matthew Kenney is a 62M w/ no sig abd pain who presents to the ER w/ complaints of abd pain. CT revealed enlarged lymph nodes disfusely in the abdomen Massively enlarged Lymph Nodes; DDx: lymphoma Epigastric pain, likely 2/2 above; DDx: PUD, malignancy Weight loss Plan: - EUS/EGD guided biospy of nodes tomorrow -NPO after midnight -continue PPI -continue diet as tolerated -will eventually need a colonoscopy as an oupt to complete work-up -will need PET ad outpt to complete staging w/u -will follow, thank you for the consultation D/W Dr. Herrera <Chan Herrera - Last Filed: 07/16/17 16:23> Objective - Vital Signs/Intake and Output Vital Signs (last 24 hours): Temp Pulse Resp BP Pulse Ox 98.2 F 82 20 132/74 99 07/16/17 15:16 07/16/17 15:16 07/16/17 15:16 07/16/17 15:16 07/16/17 15:16 Intake and Output: 07/16/17 07/16/17 06:59 18:59 Intake Total 2130 1300 Balance 2130 1300 - Medications Medications: Current Medications Enoxaparin Sodium (Lovenox) 40 mg SC DAILY [facility] Last Admin: 07/16/17 10:09 Dose: 40 mg Famotidine (Pepcid) 40 mg IVP DAILY [facility] Last Admin: 07/16/17 10:09 Dose: 40 mg Hydromorphone HCl (Dilaudid) 1 mg IVP Q4H PRN PRN Reason: Pain, Mild (1-3) Sodium Chloride (Sodium Chloride 0.9%) 1,000 mls @ 100 mls/hr IV .Q10H [facility] Last Admin: 07/16/17 11:34 Dose: Not Given Ondansetron HCl (Zofran Inj) 4 mg IVP Q6H PRN PRN Reason: Nausea/Vomiting Pneumococcal Polyvalent Vaccine (Pneumovax 23 Vaccine) 0.5 ml IM .ONCE ONE Stop: 07/17/17 10:01 - Labs Labs: 07/15/17 06:37 07/15/17 06:37 PT 16.5 SECONDS (9.7-12.2) H 07/14/17 13:26 INR 1.4 07/14/17 13:26 APTT 28 SECONDS (21-34) 07/14/17 13:26 Attending/Attestation - Attestation I have personally seen and examined this patient.: Yes I have fully participated in the care of the patient.: Yes I have reviewed all pertinent clinical information, including history, physical exam and plan: Yes Notes (Text): 07/16/17 16:22 62 year old male presenting with abdominal pain found to have massive retroperitioneal lymphadenopathy. Plan for EUS with [facility] tomorrow.
--- NOTE | 2017-07-16 17:09 | CT ---
PROCEDURE: CT neck dated 07/16/2017 HISTORY: Rule out lymphadenopathy. . Lymphoma. COMPARISON: No prior study available for comparison however correlation with concomitant CT scan chest. TECHNIQUE: Contiguous helical/ transaxial sections of the neck with intravenous contrast. Coronal and sagittal reformats generated. Intravenous contrast dose: 70 Visipaque 320 contrast material Radiation dose: DLP 543.3 mGy-cm This CT exam was performed using one or more of the following dose reduction techniques: Automated exposure control, adjustment of the mA and/or kV according to patient size, and/or use of iterative reconstruction t technique. . FINDINGS: The current study reveals multiple enlarged predominant right-sided and submandibular cervical lymph nodes. The largest right-sided jugulodigastric lymph node measures approximately 3.2 cm. There are 2 submandibular lymph nodes measuring approximately 14 mm and 15 mm respectively. Large right-sided submandibular lymph nodes measuring 2.5 and 1.7 cm. Large posterior cervical lymph node measuring approximately 2.0 cm. There is a large right anterior infer parotid lymph node measuring approximately 2.5 cm. Multiple small left-sided cervical lymph nodes are present the though none of these appear greater than a cm or so in size. Few small bilateral supraclavicular lymph nodes are present 1 of which on the right side exhibits a low-attenuation center possibly due to cystic degeneration or necrosis measuring approximately 1.2 cm. These findings are consistent with this patient's history of lymphoma. Enlargement of the right palatine tonsil with low attenuation possibly due to lymphomatous infiltration . The enlarged tonsil extends midline encroaching into and the reducing the oropharyngeal airway. Vallecular is patent. Free margin of the epiglottis unremarkable. . There is mild asymmetry of the pyriform sinuses right-sided which is smaller than the left side nonspecific. LYMPH NODES: As above CERVICAL SPINE: Multilevel degenerative spondylosis of the cervical and thoracic spine. VASCULAR STRUCTURES: The common carotid arteries, carotid bifurcations and internal carotid arteries are widely patent. The basilar artery is also patent throughout, left-sided of which appears slightly larger/more dominant in caliber than the right side. OTHER FINDINGS: There is mild biapical pleural thickening and parenchymal scarring of. At least 2 calcified granuloma right lung apex the and tiny granuloma left lung apex. Findings consistent with prior exposure to granulomatous disease process. IMPRESSION: Multiple enlarged predominant right-sided cervical lymph nodes the largest of which measures approximately 3.2 cm and is located in the right jugulodigastric region. Findings are consistent with this patient's history of lymphoma. . There is a smaller 1.2 cm lymph node right supraclavicular region with low-attenuation center possibly due to cystic degeneration or necrosis. Enlarged right palatine tonsil possibly due to lymphomatous infiltration as well.
--- NOTE | 2017-07-16 17:22 | CT ---
PROCEDURE: CT scan chest dated 07/16/2017 HISTORY: Rule out lymphadenopathy. Lymphoma. COMPARISON: No prior study available for comparison however correlation made with CT scan abdomen pelvis 07/14/2017. TECHNIQUE: Contiguous helical/transaxial images were obtained through the chest with intravenous contrast enhancement. Sagittal and coronal reconstructions were performed. IV contrast: 100 cc Visipaque 320 Radiation dose (DLP): 544.31 mGy-cm. This CT exam was performed using one or more of the following dose reduction techniques: Automated exposure control, adjustment of the mA and/or kV according to patient size, and/or use of iterative reconstruction technique. FINDINGS: LUNGS: Bilateral effusions right larger than left. Mild atelectasis both posterior lower lung zones. . There mild ground glass opacities in the lower and to a lesser degree upper lobes possibly due to some air trapping. . Biapical pleural thickening with curvilinear and nodular scarring and fibrosis extending into the upper lung wu. There are multiple calcifications seen in the right lung apex and several calcifications seen in the left lower lobe and at least 1 in the left upper lobe consistent with prior exposure to a granulomatous disease process. . MEDIASTINUM: The heart appears borderline/ mildly enlarged. No significant pericardial effusion. Ascending thoracic aorta measures approximately 3.4 cm and descending thoracic aorta measures approximately 3.0 cm. Pulmonary trunk measures approximately 2.85 cm. No significant mediastinal or hilar adenopathy. Central airways are midline and patent. Nose large central endoluminal lesions. There is a small hiatal hernia. PLEURA: As above. No evidence of pneumothorax. BONES: Multilevel degenerative spondylosis of the thoracic spine with multilevel anterior bridging osteophyte formation. UPPER ABDOMEN: Please refer to CT scan of the at abdomen and corresponding report 07/14/2017 for additional details regarding massive retroperitoneal and mesenteric adenopathy in the upper abdomen an small amount of ascites. OTHER FINDINGS: None. IMPRESSION: No significant mediastinal or hilar adenopathy. Bilateral effusions right larger than left. Biapical pleural thickening with curvilinear and nodular parenchymal scarring is well as fibrosis in the upper lung wu as above. Multiple calcified granulomata consistent with prior exposure to granulomatous disease process.
[2017-07-16] MEDS ORDERED: HYDROmorphone 1 mg/ml ISec IVP PRN (20:59)
--- NOTE | 2017-07-16 22:19 | CON ---
REQUESTING PHYSICIAN: Rochelle Green MD HISTORY: This is a 62 year old male with 1-year history of dysphagia and neck mass. The dysphagia is described as dryness. It is on both sides of the throat and superiorly, constant, [id number] in intensity. There is no hoarseness. The neck mass has been on the right upper neck level 2 for about a year, constant, [id number] in size, no pain. PAST MEDICAL HISTORY: As noted in the chart by me. MEDICATIONS: As noted in the chart by me. PHYSICAL EXAMINATION: HEAD: Atraumatic and normocephalic. FACE: Good facial movements bilaterally. CONSTITUTIONAL: Well fed, well nourished. COMMUNICATION: Communicates well and appropriately. EXTERNAL NOSE AND EARS: No masses. No lesions. No erythema. No edema. INTERNAL NOSE: Deviated septum. No masses. No lesions. No erythema. No edema. ORAL CAVITY AND OROPHARYNX: Enlarged right tonsil. No other masses or lesions noted. No erythema. No edema. NECK: Supple. THYROID: No thyromegaly. No goiter. LYMPH NODES: There is lymphadenopathy of the right level 2 of the neck, it is [id number] in intensity. LIPS AND GUMS: No masses. No lesions. No erythema. No edema. ASSESSMENT: The patient has enlarged tonsil and neck node on the right. The patient also has multiple lymph nodes noted in the stomach. There is a possibility of lymphoma. The patient will also have biopsy of the stomach, nose, and tongue. We will also recommend an interventionalist to biopsy the neck node if further diagnostics is needed for what the enlarged tonsil is, no tonsillectomy is recommended, however, at this point, those procedures seem less invasive and will have less postop complication. I have recommended it first and investigate it further. She will also will have a CAT scan, which I believe will be scheduled for tomorrow of the neck. Justyn Ji MD
[2017-07-17] MEDS ORDERED: Morphine 4 MG/ML VIAL IV ONE (00:54)
[2017-07-17] MEDS: Sodium Chloride 0.9% 1,000 ML IV SCH ×3 (01:24→11:30)
--- NOTE | 2017-07-17 01:38 | PN ---
DATE: SUBJECTIVE: The patient is a 62-year-old male. The patient is seen and examined on the bedside, looking comfortable, complaining of upper abdominal pain. No nausea, vomiting, or diarrhea. No fever, no chills, no headache, no dizziness, no hematuria, no hematochezia. No swelling of the legs. PHYSICAL EXAMINATION VITAL SIGNS: Temperature 98.2, pulse 82, blood pressure 132/74, respiratory rate 20. HEENT: Normocephalic, atraumatic. Eyes: PERRLA. Extraocular muscles intact. Conjunctivae clear. Nose patent. Mucous membranes moist. NECK: Supple. No carotid bruits, JVD, or thyromegaly. CHEST: Chest wall is symmetric. HEART: S1, S2 positive. LUNGS: Clear to auscultation. ABDOMEN: Soft. Bowel sounds positive. No organomegaly. EXTREMITIES: No edema, no cyanosis. NEURO: The patient is awake, alert, moving all 4 extremities. No focal deficits. MEDICATIONS: Dilaudid, Lovenox, Pepcid antacid, Zofran. LABS: White blood cells 8.5, hemoglobin 10.2, hematocrit 30.8, platelets 349. Sodium 136, potassium 3.9, BUN 9, creatinine 0.6, glucose 91, calcium 8.3. ASSESSMENT AND PLAN: Mr. Anne Marie Brush is a 62-year-old male with anemia, hyperchloremia, hypocalcemia, iron deficiency, abnormal liver function tests, came with abdominal pain, soft tissue neck CT done. Chest CT done, had multiple enlarged predominantly right-sided cervical lymph nodes, the largest of which measures approximately 3.2 cm and is located in the right jugular diagnostic region, findings are consistent with the patient's history of lymphoma. There is small 1.2 cm lymph node in right supraclavicular region with low attenuation center possibly due to cystic degenerative changes, enlarged right palatine tonsil, possibility of lymphomatous infiltration as well. CT scan of the chest showed bilateral effusions, the right larger than the left, bilateral pleural effusions with pericardial effusion and nodular parenchymal scarring as well as fibrosis in the upper lung wu as well, multiple calcified granulomas consistent with prior exposure to granulomatous disease process, seen by Dr. Rochelle Green, Oncologist, history of weight loss. We did core biopsy of lymph node to establish diagnosis. We will get ENT evaluation, FNA of the right , lymph node to rule out tonsillar abscess or malignancy. Appreciated oncologist input and GI input. Repeat labs. We will follow up. Meanwhile, we are managing the patient's pain. Kenzie Zepeda MD [email or web address]
[2017-07-17 08:10] LABS: HEPATITIS B SURFACE AG Negative (NEGATIVE)
[2017-07-17 08:17] LABS: HEPATITIS A IGM NEGATIVE (NEGATIVE); HEPATITIS B CORE AB NEGATIVE (NEGATIVE)
[2017-07-17 08:28] LABS: HEPATITIS C ANTIBODY NEGATIVE (NEGATIVE)
--- NOTE | 2017-07-17 12:09 | CP.PCM.PN ---
<Lang Moe - Last Filed: 07/17/17 12:13> Subjective - Date & Time of Evaluation Date of Evaluation: 07/17/17 Time of Evaluation: 11:45 - Subjective Subjective: PGY5 GI Fellow Progress Note Patient seen and examined bedside this morning. The patient has no complaints at this time and is awaiting lymph node biopsy. Denies any events overnight. 12 system ROS performed and negative. Objective - Vital Signs/Intake and Output Vital Signs (last 24 hours): Temp Pulse Resp BP Pulse Ox 98.1 F 83 20 144/75 99 07/16/17 23:39 07/16/17 23:39 07/16/17 23:39 07/16/17 23:39 07/16/17 23:39 Intake and Output: 07/17/17 07/17/17 06:59 18:59 Intake Total 2049 Balance 2049 - Medications Medications: Current Medications Enoxaparin Sodium (Lovenox) 40 mg SC DAILY [facility] Last Admin: 07/16/17 10:09 Dose: 40 mg Famotidine (Pepcid) 40 mg IVP DAILY [facility] Last Admin: 07/17/17 09:09 Dose: 40 mg Hydromorphone HCl (Dilaudid) 1 mg IVP Q6H PRN PRN Reason: Pain, Mild (1-3) Sodium Chloride (Sodium Chloride 0.9%) 1,000 mls @ 100 mls/hr IV .Q10H [facility] Last Admin: 07/17/17 11:30 Dose: 100 mls/hr Ondansetron HCl (Zofran Inj) 4 mg IVP Q6H PRN PRN Reason: Nausea/Vomiting Pneumococcal Polyvalent Vaccine (Pneumovax 23 Vaccine) 0.5 ml IM .ONCE ONE Stop: 07/18/17 10:01 - Labs Labs: 07/15/17 06:37 07/15/17 06:37 PT 16.5 SECONDS (9.7-12.2) H 07/14/17 13:26 INR 1.4 07/14/17 13:26 APTT 28 SECONDS (21-34) 07/14/17 13:26 - Constitutional Appears: Non-toxic, No Acute Distress - Eye Exam Eye Exam: EOMI, PERRL - ENT Exam ENT Exam: Mucous Membranes Moist - Respiratory Exam Respiratory Exam: Clear to Ausculation Bilateral. absent: Rales, Rhonchi, Wheezes - Cardiovascular Exam Cardiovascular Exam: RRR, +S1, +S2 - GI/Abdominal Exam GI & Abdominal Exam: Soft, Normal Bowel Sounds. absent: Distended, Firm, Guarding, Rigid, Tenderness, Organomegaly - Extremities Exam Extremities Exam: Normal Inspection. absent: Pedal Edema - Neurological Exam Neurological Exam: Alert, Awake, Oriented x3 - Psychiatric Exam Psychiatric exam: Normal Affect, Normal Mood - Skin Skin Exam: Dry, Warm Assessment and Plan - Assessment and Plan (Free Text) Assessment: Patient is a 62yo male who presented to the ED with complaint of abdominal pain. CT revealed multiple enlarged LNs. -Abnormal CT findings - Lymph node enlargement with concern for underlying lymphoma -Unexplained weight loss Plan: -Patient to have IR guided biopsy of LN today -No need for EUS biopsy if plan for IR biopsy -Continue PPI and diet as tolerated once biopsy performed -Would benefit from age appropriate screening colonoscopy -Outpt work up with heme/onc if needed -Will sign off, thank you for allowing us to participate in the care of your patient <Lobito Perkins - Last Filed: 07/17/17 16:09> Objective - Vital Signs/Intake and Output Vital Signs (last 24 hours): Temp Pulse Resp BP Pulse Ox 98.1 F 83 20 144/75 99 07/16/17 23:39 07/16/17 23:39 07/16/17 23:39 07/16/17 23:39 07/16/17 23:39 Intake and Output: 07/17/17 07/17/17 06:59 18:59 Intake Total 2049 Balance 2049 - Medications Medications: Current Medications Enoxaparin Sodium (Lovenox) 40 mg SC DAILY [facility] Last Admin: 07/16/17 10:09 Dose: 40 mg Famotidine (Pepcid) 40 mg IVP DAILY [facility] Last Admin: 07/17/17 09:09 Dose: 40 mg Hydromorphone HCl (Dilaudid) 1 mg IVP Q6H PRN PRN Reason: Pain, Mild (1-3) Ondansetron HCl (Zofran Inj) 4 mg IVP Q6H PRN PRN Reason: Nausea/Vomiting Pneumococcal Polyvalent Vaccine (Pneumovax 23 Vaccine) 0.5 ml IM .ONCE ONE Stop: 07/18/17 10:01 - Labs Labs: 07/15/17 06:37 07/15/17 06:37 PT 16.5 SECONDS (9.7-12.2) H 07/14/17 13:26 INR 1.4 07/14/17 13:26 APTT 28 SECONDS (21-34) 07/14/17 13:26 Attending/Attestation - Attestation I have personally seen and examined this patient.: Yes I have fully participated in the care of the patient.: Yes I have reviewed all pertinent clinical information, including history, physical exam and plan: Yes Notes (Text): 07/17/17 16:07 This is a 62 year old male who presented to the ED with complaint of abdominal pain. CT revealed multiple enlarged LNs with concern for underlying lymphoma with uninitentional weight loss. s/p IR guided LN biopsy today. Continue PPI and diet as tolerated once biopsy performed. Would benefit from age appropriate screening colonoscopy- can be done as outpatient. -Will sign off, thank you for allowing us to participate in the care of your patient
[2017-07-17] MEDS ORDERED: Midazolam 2 MG/2 ML VIAL ONE (12:44)
--- NOTE | 2017-07-17 15:25 | PCM.SURG1 ---
Surgeon's Initial Post Op Note - Surgeon's Notes Surgeon: Desmond Layton MD Director Volunteer Services: None Type of Anesthesia: MAC Pre-Operative Diagnosis: lymphadenopathy Operative Findings: confluent cystic and solid abdominal/retroperitoneal adenopathy; enlarged right neck lymph nodes Post-Operative Diagnosis: same Operation Performed: CT guided retroperitoneal lymph node core biopsy. US guided right neck superficial lymph node fna Specimen/Specimens Removed: 18 core biopsy retroperitoneal lymph node x3 ( including RPMI). right neck lymph node FNA (including RMPI) Estimated Blood Loss: EBL {In ML}: 3 Date of Surgery/Procedure: 07/17/17 Time of Surgery/Procedure: 13:30
--- NOTE | 2017-07-17 15:34 | CT ---
PROCEDURE: CT-GUIDED RETROPERITONEAL LYMPH NODE BIOPSY CLINICAL HISTORY: 62-year-old male with diffuse lymphadenopathy is referred to Interventional Radiology for percutaneous image-guided core needle biopsy. COMPARISON: CT scan of the abdomen and pelvis dated 07/14/2017 PROCEDURE: 1. Focused CT of the abdomen. 2. CT-guided core needle biopsy of a retroperitoneal lymph node. PRE-PROCEDURE FINDINGS: 1. Diffuse conglomerate abdominal/ retroperitoneal cystic and solid lymphadenopathy. POST-PROCEDURE FINDINGS: 1. No evidence of post-procedural complication. INTERVENTIONAL RADIOLOGIST: Desmond Layton M.D. (the attending was present for the entire procedure) ANESTHESIA: Provided by the attending anesthesiologist. Sedation was supervised by the anesthesiology attending with the presence of independent radiology nursing monitoring. Physiological data monitoring was performed throughout the entire procedure. The patient's blood pressure, EKG and pulse oximetry were recorded. The patient tolerated the procedure and sedation without untoward reactions. The intra-procedural sedation time was 20 minutes. MEDICATIONS: Lidocaine 1% for local subcutaneous analgesia. See anesthesia record for sedation medications. COMPLICATIONS: None. PROCEDURE DESCRIPTION AND FINDINGS: The risks, benefits, alternatives and possible complications of the procedure were fully discussed; all questions were answered and informed consent was obtained. The patient was brought into the interventional suite and a pre-procedure 'time-out' was performed. The patient was placed on the CT table in the prone position. The lymph nodes were localized under CT-guidance and a deshawn was made on the skin site overlying the lesion. The left paraspinal back was prepped and draped in the usual sterile fashion. Maximum sterile barrier precautions were maintained throughout the entire procedure. Preliminary focused CT images of the abdomen again demonstrate diffuse conglomerate abdominal/ retroperitoneal cystic and solid lymphadenopathy. Following subcutaneous infiltration of lidocaine 1% for local analgesia, under CT-guidance, a 17-gauge trocar needle was advanced into a left retroperitoneal lymph node. The inner stylet was carefully removed. A 18-gauge biopsy device was coaxially loaded into the introducer needle and a total of 3 core needle biopsies were obtained. The biopsy device and trocar needle were removed. Adequate hemostasis was achieved utilizing manual compression. A sterile adhesive dressing was applied over the puncture site. Post-procedure imaging demonstrated no complications. The patient tolerated the procedure well without immediate post-procedure complications and was transferred to the interventional radiology recovery area in stable condition. IMPRESSION: Successful CT-guided core needle biopsy of a left retroperitoneal lymph node. A total of 3 samples were obtained (including RPMI).
--- NOTE | 2017-07-17 15:37 | US ---
PROCEDURE: ULTRASOUND-GUIDED SUPERFICIAL LYMPH NODE FINE NEEDLE ASPIRATION CLINICAL HISTORY: 62-year-old male with diffuse lymphadenopathy is referred to Interventional Radiology for percutaneous image-guided fine needle aspiration. COMPARISON: CT scan of the neck dated 07/16/2017. PROCEDURE: 1. Focused ultrasound of the neck. 2. Ultrasound-guided fine needle aspiration of a right neck superficial lymph node. PRE-PROCEDURE FINDINGS: 1. Enlarged right neck lymphadenopathy. POST-PROCEDURE FINDINGS: 1. No evidence of post-procedural complication. INTERVENTIONAL RADIOLOGIST: Desmond Layton M.D. (the attending was present for the entire procedure) ANESTHESIA: Provided by the attending anesthesiologist. Sedation was supervised by the anesthesiology attending with the presence of independent radiology nursing monitoring. Physiological data monitoring was performed throughout the entire procedure. The patient's blood pressure, EKG and pulse oximetry were recorded. The patient tolerated the procedure and sedation without untoward reactions. The intra-procedural sedation time was 15 minutes. MEDICATIONS: Lidocaine 1% for local subcutaneous analgesia. COMPLICATIONS: None. PROCEDURE DESCRIPTION AND FINDINGS: The risks, benefits, alternatives and possible complications of the procedure were fully discussed; all questions were answered and informed consent was obtained. The patient was brought into the interventional suite and a pre-procedure 'time-out' was performed. The patient was placed on the ultrasound table in the supine position. The lesion was localized under ultrasound-guidance and a deshawn was made on the skin site overlying the lesion. The right neck was prepped and draped in the usual sterile fashion. Maximum sterile barrier precautions were maintained throughout the entire procedure. Preliminary focused ultrasound images of the right neck again demonstrate lymphadenopathy. Following subcutaneous infiltration of lidocaine 1% for local analgesia, under ultrasound-guidance, multiple fine-needle aspirates of were obtained of a large right neck lymph node. The ultrasound images were permanently recorded and submitted to the PACS. Adequate hemostasis was achieved utilizing manual compression. A sterile adhesive dressing was applied over the puncture site. Post-procedure imaging demonstrated no complications. The patient tolerated the procedure well without immediate post-procedure complications and was transferred to the interventional radiology recovery area in stable condition. IMPRESSION: Successful ultrasound-guided fine-needle aspiration of a large right neck lymph node.
--- NOTE | 2017-07-18 02:00 | PN ---
DATE: SUBJECTIVE: The patient is 62 years old male. The patient is seen and examined at the bedside. The patient has no complaints. Some times complaining about abdominal pain. Eventful lymph node biopsy today. Denies any overnight event. PHYSICAL EXAMINATION: VITAL SIGNS: Temperature 98.1, pulse 83, respiratory rate 20, blood pressure 144/75, pulse oximetry 99. HEENT: Head normocephalic, atraumatic. Eyes: PERRLA. Extraocular muscles intact. Conjunctivae clear. Nose patent. Mucous membrane moist. NECK: Supple. No carotid bruits. No JVD or thyromegaly. CHEST: Bilaterally symmetrical. HEART: S1 and S2 positive. LUNGS: Clear to auscultation. ABDOMEN: Soft. Bowel sounds positive. No organomegaly. EXTREMITIES: No edema, no cyanosis. NEUROLOGICAL: The patient is awake and alert, moving all four extremities. No focal deficits. MEDICATIONS: Lovenox, Pepcid, Dilaudid, NS, Zofran, pneumococcal vaccine. LABORATORY DATA: White blood cell is 8.5, hemoglobin 10.6, hematocrit 38.8, and platelets of 349. ASSESSMENT AND PLAN: Mr. Gonsalo Kenney is a 62-year-old male with anemia, came with abdominal pain. CT revealed multiple enlarged lymph nodes. Abdominal CT findings, lymph node enlargement with concern of underlying lymphoma, unexplained weight loss. The patient went for IR guided biopsy of the lymph nodes. No need of EUS biopsy if plan for IR biopsy as per corrections lieutenant. Continue PPI (proton pump inhibitor) and diet as tolerated. When biopsy performed, could benefit from age appropriate screening test, for example, colonoscopy can be done as outpatient as per Dr. Perkins. GI sign off the case. Bisque Finisher is on the case. Gastrointestinal and deep venous thrombosis prophylaxis. ENT also saw the patient, Dr. Justyn Ji. The patient has enlarged tonsils also and neck nodes. We will follow up. Kenzie Zepeda MD
[2017-07-18 08:10] LABS: EOS # 0.1 K/uL (0.0-0.7); HEMOGLOBIN 11.8 g/dL (12.0-18.0); LYMPH # 0.6 K/uL (1.0-4.3); MEAN PLATELET VOLUME 8.2 fL (7.2-11.7); MONO # 0.6 K/uL (0.0-0.8)
[2017-07-18 08:13] LABS: BASO # 0.1 K/uL (0.0-0.2); BASO % 1.2 % (0.0-2.0); LYMPH % 6.6 % (20.0-40.0); MEAN CELL VOLUME 83.9 fL (80.0-94.0); MEAN CORPUSCULAR HEMOGLOBIN 27.9 pg (27.0-31.0); MEAN CORPUSCULAR HGB CONC 33.3 g/dL (33.0-37.0); MONO % 6.7 % (0.0-10.0); NEUT # 7.7 K/uL (1.8-7.0); NEUT % 84.5 % (50.0-75.0); PLATELET COUNT 439 K/uL (130-400); RBC 4.22 Mil/uL (4.40-5.90); RED CELL DISTRIBUTION WIDTH 14.9 % (11.5-14.5); WHITE BLOOD COUNT 9.2 K/uL (4.8-10.8)
[2017-07-18 08:23] LABS: BLOOD UREA NITROGEN 10 mg/dL (9-20); GFR AFRICAN-AMERICAN > 60; GFR NON-AFRICAN AMERICAN > 60
[2017-07-18 08:53] LABS: ANISOCYTOSIS SLIGHT; EOSINOPHIL 2 % (0-4); LYMPHOCYTE 5 % (20-40); MONOCYTE 5 % (0-10); NEUTROPHIL 87 % (50-75); PLATELET ESTIMATE SLIGHTLY INCREASED (NORMAL); REACTIVE LYMPHOCYTES 1 % (0-0); TOTAL CELLS COUNTED 100
[2017-07-18] MEDS ORDERED: Pneumococcal 23-Valent Vaccine IM ONE (10:00)
--- NOTE | 2017-07-18 16:10 | CP.PCM.PN ---
Subjective - Date & Time of Evaluation Date of Evaluation: 07/18/17 Time of Evaluation: 16:10 - Subjective Subjective: Alert, oriented x3 , no acute distress. Objective - Vital Signs/Intake and Output Vital Signs (last 24 hours): Temp Pulse Resp BP Pulse Ox 97.9 F 90 20 118/72 95 07/18/17 07:00 07/18/17 07:00 07/18/17 07:00 07/18/17 07:00 07/18/17 07:00 Intake and Output: 07/18/17 07/18/17 06:59 18:59 Intake Total 200 380 Balance 200 380 - Medications Medications: Current Medications Enoxaparin Sodium (Lovenox) 40 mg SC DAILY [facility] Last Admin: 07/16/17 10:09 Dose: 40 mg Famotidine (Pepcid) 20 mg PO BID [facility] Hydromorphone HCl (Dilaudid) 1 mg IVP Q6H PRN PRN Reason: Pain, Mild (1-3) Ondansetron HCl (Zofran Inj) 4 mg IVP Q6H PRN PRN Reason: Nausea/Vomiting - Labs Labs: 07/18/17 07:59 07/18/17 07:59 PT 16.5 SECONDS (9.7-12.2) H 07/14/17 13:26 INR 1.4 07/14/17 13:26 APTT 28 SECONDS (21-34) 07/14/17 13:26 Assessment and Plan - Assessment and Plan (Free Text) Assessment: Patient is seen and examined. Alert and orientedx3, complaints of some chronic pain on the right flank area. Discussed with DR Coto, advised to come and see her in the office next Monday to follow up on the lymph node biopsy. Advised to f/u with a PMD in 1 week.
[2017-07-18 16:56] VITALS: BP 126/78; PULSE 104; TEMP 98.7; O2SAT 98
--- NOTE | 2017-07-27 13:49 | CARD ---
APPROVED REPORT EKG Measurement Heart [id number] <Conclusion> Normal sinus rhythm Septal infarct, age undetermined Abnormal ECG
--- NOTE | 2017-07-30 22:55 | DS ---
CHIEF COMPLAINT: Feeling fatigued, tired, and abdominal pain. HISTORY OF PRESENT ILLNESS: Mr. Anne Marie Brush is a 62 years old male with nonsignificant past medical history, came for evaluation of epigastric mass that started to hurt for the past week. The patient described pain as localized over the epigastric area. As per family, for the past few days, the patient was unable to swallow because of pain in the epigastrium. In the beginning it comes and goes and now it is constant. No fever. No chills. We admitted the patient with CAT scan of abdomen and pelvis, CAT scan of the chest, soft tissue of the neck, seen by Dr. Lobito Perkins, Dr. Justyn Ji, of ENT, and Oncology, Dr. Rochelle Green, went for upper endoscopy. It looks like the patient has lymphoma. The patient stabilized. Discharged on 07/18/2017 with followup with Oncology and ENT. Pain was a little bit better. The patient was advised to see Dr. Green in her office on Monday for followup lymph node biopsy. I advised to follow up with primary care physician also. The patient was discharged by Young Larson, nurse practitioner. PAST MEDICAL HISTORY: Denies. PAST SURGICAL HISTORY: Cholecystectomy. FAMILY HISTORY: Father and mother, noncontributory. HABITS: Never smoked. No drugs. No ethanol. ALLERGIES: THE PATIENT IS NOT ALLERGIC TO ANY MEDICATIONS. HOME MEDICATIONS: Denied. REVIEW OF SYSTEMS: The patient seen and examined at the bedside, looking comfortable. Pain is better. No nausea, vomiting. No headache or dizziness. No chest pain or palpitations. PHYSICAL EXAMINATION: VITAL SIGNS: Temperature 98.7, pulse 104, blood pressure 120/78, respiratory rate 20. HEENT: Head: Normocephalic, atraumatic. Eyes: PERRLA. Extraocular movements intact. Conjunctivae clear. Nose patent. NECK: Supple. No carotid bruits, JVD, or thyromegaly. CHEST: Bilaterally symmetrical. HEART: S1 and S2 positive. LUNGS: Clear to auscultation. ABDOMEN: Soft. Bowel sounds positive. No organomegaly. EXTREMITIES: No edema, no cyanosis. NEUROLOGICAL: The patient is awake and alert, follows simple commands. LABORATORY DATA: White blood cells 9.3, hemoglobin 11.8, hematocrit 35.4, platelets 439. Sodium 135, potassium 3.8, BUN 10, creatinine 0.6, glucose 82. ASSESSMENT AND PLAN: Mr. Anne Marie Brush is a 62-year-old male with anemia, thrombocytosis, hypocalcemia, iron deficiency. Hepatitis profile negative. Came with abdominal pain. CT revealed multiple lymph nodes, abnormal CT findings. Lymph node not met with concern of underlying lymphoma. Unexplained weight loss. The patient went for interventional radiologist guided biopsy of the lymph nodes. No need of EUS biopsy. If plan for IR biopsy as per electrical contractor, we gave a PPI. colonoscopy can be done as outpatient as per GI, Dr. Perkins. Wet Suit Gluer was on the case. Deep vein thrombosis prophylaxis given. ENT saw the patient, Dr. Justyn Ji. The patient has enlarged tonsils and neck lymph nodes. The patient was discharged on 07/18/2017 by nurse practitioner, Young Larson. Follow up with his own primary care physician and Dr. Norma Byrd for followup of biopsy results and for treatment. Kenzie Zepeda MD [email or web address]
== END 2017-07-18 20:02 | disposition home or self-care (01) | DRG 394 ==
LOC: C.ER 11:35 → C.9E 17:20 → C.3T 18:24
PROVIDERS: ADMIT Internal Medicine; ATTEND Internal Medicine
PROC: 07D13ZX Extraction of Right Neck Lymphatic, Percutaneous Approach, Diagnostic (ICD-10-PCS; principal; 2017-07-16)
PROC: 07DD3ZX Extraction of Aortic Lymphatic, Percutaneous Approach, Diagnostic (ICD-10-PCS; 2017-07-17)
DX: R59.0 Localized enlarged lymph nodes (principal); E87.8 Other disorders of electrolyte and fluid balance, not elsewhere classified; J90 Pleural effusion, not elsewhere classified; D50.9 Iron deficiency anemia, unspecified; E83.51 Hypocalcemia; I31.3 Pericardial effusion (noninflammatory); J35.1 Hypertrophy of tonsils; J84.10 Pulmonary fibrosis, unspecified; Z90.49 Acquired absence of other specified parts of digestive tract; Z85.72 Personal history of non-Hodgkin lymphomas; R63.4 Abnormal weight loss

== ENCOUNTER 2017-07-31 08:25 | Day surgery (SDC) | payer MEDICAID ==
[2017-07-31] MEDS ORDERED: Midazolam 2 MG/2 ML VIAL ONE (10:23)
--- NOTE | 2017-07-31 10:26 | CP.SDSHP ---
Same Day Surgery H & P - History Proposed Procedure: Port placement Pre-Op Diagnosis: Lymphoma - Allergies Allergies: Allergies No Known Allergies Allergy (Unverified 07/14/17 11:48) - Physical Exam Mental Status: Alert & Oriented x3 Neuro: WNL Heart: WNL Lungs: WNL GI: WNL - Impression Impression: Pt with lymphadenopathy referred for port placement for chemotherapy. Plan right IJV port placement. Informed consent obtained. Pt. Evaluated Today:Candidate for Anesthesia & Procedure: Yes (ASA 3 Malampati 3) - Date & Time Date: 07/31/17 Time: 10:15 Short Stay Discharge - Short Stay Discharge Admitting Diagnosis/Reason for Visit: N
--- NOTE | 2017-07-31 10:36 | PCM.SURG1 ---
Surgeon's Initial Post Op Note - Surgeon's Notes Surgeon: Geovanny Potts MD Healthcare Liaison: NONE Type of Anesthesia: IV Sedation Pre-Operative Diagnosis: Lymphoma Operative Findings: US showed patent right IJV. Multiple cervical lymphadenopathy. Post-Operative Diagnosis: Lymphoma Operation Performed: Port placed right IJV. Tip of port catheter is in the SVC. Specimen/Specimens Removed: none Estimated Blood Loss: EBL {In ML}: 3 Blood Products Given: N/A Drains Used: No Drains Post-Op Condition: Fair Date of Surgery/Procedure: 07/31/17 Time of Surgery/Procedure: 11:05
[2017-07-31] MEDS ORDERED: Vancomycin 500 mg (Oral/Rectal USE) ONE (10:37)
[2017-07-31 10:46] VITALS: BMI 32.1
--- NOTE | 2017-07-31 12:12 | SPECPROC ---
PROCEDURE: Date of procedure: 07/31/2017 Procedure: 1. Placement of a right IJ port catheter with ultrasound and fluoroscopic guidance, CPT 62409 2. Catheter tip confirmation with spot radiograph in the superior vena cava. Medications: The patient was sedated anesthesiologist along with monitoring, Ancef 1 gm, 10 cc Lidocaine 1% w Epinephrine Fluoroscopic time: 4.1 seconds Radiation: 0.98 mGy Blood loss: 4 cc HISTORY: Lymphoma requiring port for chemotherapy TECHNIQUE: Following informed consent the procedure time-out, patient was placed supine on the interventional table and the right neck and chest were prepped and draped in the usual sterile fashion. Ultrasound showed a compressible right internal jugular vein. Multiple supraclavicular enlarged lymph nodes are present After the patient was sedated by the anesthesiologist, the skin anesthetized with 1% lidocaine with epinephrine. Under direct ultrasound guidance, the right internal jugular vein was accessed with micropuncture technique. A guidewire was then advanced under fluoroscopic guidance into the superior vena cava. An image documenting ultrasound guidance for vascular access was permanently saved. The subcutaneous tissue of patient right chest was infiltrated with 1 percent lidocaine with epinephrine. A dermatotomy was made with a 15. Scalpel. The port pocket was then created with blunt dissection using a Nicole clamp. The port pocket was flushed. A port catheter was then tunneled under the skin and out the venotomy site. The port catheter was flushed, advanced through a peel-away sheath, adjusted for length, and attached to the port. The port was flushed and locked with heparin. The port pocket was then closed with absorbable 4-0 Polysorb sutures. The port pocket and the venotomy site were reprepped with ChloraPrep. Steri-Strips were then applied to the port incision also venotomy site. A sterile dressing was then applied. Final spot radiograph showed the right IJ port catheter with tip of the port catheter in the superior vena cava. A port is functional and ready for use. IMPRESSION: Placement of right IJ port catheter. The tip of the port is in the superior vena cava. Port is functional ready use.
== END 2017-07-31 12:55 | disposition home or self-care (01) ==
LOC: C.SPRAD 08:25
PROVIDERS: ATTEND Radiology Vascular & Interventional Radiology
DX: Z45.2 Encounter for adjustment and management of vascular access device (principal); C85.90 Non-Hodgkin lymphoma, unspecified, unspecified site
CPT/HCPCS: 36560; 36561; 76937; 77001; 99152; 99153; C1751; J1644; J2250; J3010